=== PATIENT | female | born 1980 | race Caucasian/White ===

== ENCOUNTER → 2017-07-14 | Outpatient (CLI) | payer OTHER ==
--- NOTE | 2017-07-14 17:13 | Diagnostic Imaging Report ---
PROCEDURE:US RETROPERITONEAL ( KIDNEY ). COMPARISON:None. INDICATIONS:CONGENITAL LYMPHANGIOMA TECHNIQUE: Negro-scale and color sonographic images of the bilateral kidneys and bladder where obtained in transverse and longitudinal planes. FINDINGS: RIGHT KIDNEY: 10.2 cm, cortex 1.5 cm Cysts: None Solid masses: None Stones: None Hydronephrosis: None Echogenicity: Normal LEFT KIDNEY: 10.1 cm, cortex 2.4 cm Cysts: None Solid masses: None Stones: None Hydronephrosis: None Echogenicity: Normal Bladder: No focal lesions. Bilateral ureteral jets are identified. 5.8 x 4.2 x 7.3 cm ill-defined hypoechoic structure with posterior acoustic enhancement, and scattered internal echoes likely representing a mildly complex fluid collection, located between the spleen and superior pole of the left kidney. Incidental note is made of increased attenuation of the visualized hepatic parenchyma. CONCLUSION: 1. Normal bilateral renal size, and echogenicity. No hydronephrosis, stones, or focal lesions. 2. 7.3 cm ill-defined, mildly complex fluid collection between the spleen, and superior pole of the left kidney, which may represent the known congenital lymphangioma. This is best visualized/evaluated with contrast-enhanced MRI or CT abdomen. 3. Hepatic steatosis. Deandre Davenport M.D. Dictated by: Deandre Davenport M.D. on 07/14/2017 at 17:23 Electronically approved by: Deandre Davenport M.D. on 07/14/2017 at 17:23
== END ==
LOC: US 15:19
PROVIDERS: ATTEND Internal Medicine
DX: I65.29 Occlusion and stenosis of unspecified carotid artery (principal); D18.1 Lymphangioma, any site
CPT/HCPCS: 76770; 93880

== ENCOUNTER 2017-10-05 12:06 | Emergency (ER) | payer OTHER, MEDICARE ==
[~2017-10-05] VITALS: Ht 170.2 cm; Wt 80.3 kg
--- OUTSIDE RECORDS SUMMARY | 2017-10-05 12:08 | XMS REPORT ---
Author Author [facility] Address Unknown Phone Unavailable Care Team Providers Care Lpn Private Duty Name Role Phone WALLACE PITTS Unavailable Unavailable Problems This patient has no known problems. Allergies, Adverse Reactions, Alerts This patient has no known allergies or adverse reactions. Medications This patient has no known medications. Results Test Description Test Time Test Comments Text Results Atomic Results Result Comments US RENAL RETROPERITONEAL COMP [place] [address] Patient Name: SHELL GAYTAN MR #: [id number] : 1980 Age/Sex: 37/F Req #: [id number] Adm Physician: Ordered by: WALLACE PITTS MD Report #: [id number] Location: Room/Bed: Procedure: [id number] US/US RENAL RETROPERITONEAL COMP Exam Date: 07/14/17 Exam Time: 1616 REPORT STATUS: Signed PROCEDURE : US RETROPERITONEAL ( KIDNEY ). COMPARISON: None. INDICATIONS: CONGENITAL LYMPHANGIOMA TECHNIQUE: Negro-scale and color sonographic images of the bilateral kidneys and bladder where obtained in transverse and longitudinal planes. FINDINGS: RIGHT KIDNEY: 10.2 cm, cortex 1.5 cm Cysts: None Solid masses: None Stones: None Hydronephrosis: None Echogenicity: Normal LEFT KIDNEY: 10.1 cm, cortex 2.4 cm Cysts: None Solid masses: None Stones: None Hydronephrosis: None Echogenicity: Normal Bladder: No focal lesions. Bilateral ureteral jets are identified. 5.8 x 4.2 x 7.3 cm ill-defined hypoechoic structure with posterior acoustic enhancement, and scattered internal echoes likely representing a mildly complex fluid collection, located between the spleen and superior pole of the left kidney. Incidental note is made of increased attenuation of the visualized hepatic parenchyma. CONCLUSION: 1. Normal bilateral renal size, and echogenicity. No hydronephrosis, stones, or focal lesions. 2. 7.3 cm ill-defined, mildly complex fluid collection between the spleen, and superior pole of the left kidney, which may represent the known congenital lymphangioma. This is best visualized/evaluated with contrast-enhanced MRI or CT abdomen. 3. Hepatic steatosis. Shannon Davenport M.D. Dictated by: Shannon Davenport M.D. on 07/14/2017 at 17:23 Electronically approved by: Shannon Davenport M.D. on 2017 at 17:23 Dictated By: SHANNON DAVENPORT MD 1723 Transcribed By: ALEXIS on 1723 COPY TO: WALLACE PITTS MD
[2017-10-05] MEDS ORDERED: METHYLPREDNISOLONE SOD SUCC 125 MG/2ML VIAL IV ONE (12:30)
[2017-10-05] MEDS ORDERED: ASPIRIN 81 MG CHEW TAB PO ONE (12:30)
--- NOTE | 2017-10-05 13:35 | Diagnostic Imaging Report ---
PROCEDURE: A single AP view of the chest. COMPARISON: None. INDICATIONS: SHORTNESS OF BREATH FINDINGS: Lines/tubes: None. Lungs: The lungs are well inflated and clear. There is no evidence of pneumonia or pulmonary edema. Pleura: There is no pleural effusion or pneumothorax. Heart and mediastinum: The heart and the mediastinum are unremarkable. Bones: No acute bony abnormality. IMPRESSION: 1. No acute cardiopulmonary disease. Dictated by: Huber Gunderson M.D. on 10/05/2017 at 13:37 Electronically approved by: Huber Gunderson M.D. on 10/05/2017 at 13:37
[2017-10-05 14:08] LABS: PHENCYCLIDINE SCREEN,URINE NEGATIVE (NEGATIVE)
[2017-10-05 14:09] LABS: AMPHETAMINES SCREEN,URINE POSITIVE (NEGATIVE); BENZODIAZEPINES SCREEN,URINE NEGATIVE (NEGATIVE); CLARITY,URINE SL CLOUDY (CLEAR); COLOR,URINE YELLOW (YELLOW); KETONES,URINE NEGATIVE (NEGATIVE); LEUKOCYTE ESTERASE ,URINE NEGATIVE (NEGATIVE); NITRITE,URINE NEGATIVE (NEGATIVE); PROTEIN,URINE DIPSTICK TRACE (NEGATIVE)
[2017-10-05 14:10] LABS: BILIRUBIN,URINE NEGATIVE (NEGATIVE); URINE UROBILINOGEN 0.2 mg/dL (0.2 - 1)
[2017-10-05 14:19] LABS: BACTERIA,URINE FEW /HPF; EPITHELIAL CELLS,URINE RARE /LPF; WBC,URINE (MAN) 0-5 /HPF (0-5)
[2017-10-05 14:41] LABS: BASOPHILS % 0.4 % (0.0-1.0); EOSINOPHILS # (AUTO) 0.2 (0.0-0.4); HEMATOCRIT 35.1 % (34.2-44.1); HEMOGLOBIN 11.8 g/dL (12.0-16.0); LYMPHOCYTES # (AUTO) 1.5 (1.0-3.2); LYMPHOCYTES % 29.5 % (18.0-39.1); MEAN CORPUSCULAR HEMOGLOBIN 31.3 pg (28-32); MEAN CORPUSCULAR HGB CONC 33.6 g/dL (31-35); MEAN CORPUSCULAR VOLUME 93.1 fL (81-99); MONOCYTES # (AUTO) 0.4 (0.2-0.8); MONOCYTES % 7.5 % (4.4-11.3); NEUTROPHILS % 59.2 % (38.7-80.0); PLATELET COUNT 215 x10e3/uL (140-360); RED BLOOD COUNT 3.77 x10e6/uL (3.6-5.1)
[2017-10-05 15:03] LABS: ALANINE AMINOTRANSFERASE 19 IU/L (0-55); ALBUMIN 3.3 g/dL (3.5-5.0); ALBUMIN/GLOBULIN RATIO 1.1 (0.8-2.0); ALKALINE PHOSPHATASE 114 IU/L (40-150); ANION GAP 11.6 mmol/L (8-16); BLOOD UREA NITROGEN 17 mg/dL (7-26); BUN/CREATININE RATIO 21 (6-25); CARBON DIOXIDE 29 mmol/L (22-29); CHLORIDE 104 mmol/L (98-107); CREATINE KINASE 144 IU/L (29-168); EST GLOMERULAR FILTRATION RATE > 60 ML/MIN (60-); GLUCOSE 94 mg/dL (74-118); MAGNESIUM 2.1 MG/DL (1.3-2.1); POTASSIUM 3.6 mmol/L (3.5-5.1); SODIUM 141 mmol/L (136-145)
[2017-10-05] MEDS ORDERED: METHYLPREDNISOLONE SOD SUCC 125 MG/2ML VIAL ONE (17:32)
[2017-10-05 18:16] LABS: PROTHROMBIN TIME 12.4 seconds (11.9-14.5)
[2017-10-05 18:17] LABS: PARTIAL THROMBOPLASTIN TIME 26.9 seconds (23.8-35.5)
[2017-10-05 20:17] VITALS: BP 109/75
== END 2017-10-05 20:20 | disposition home or self-care (01) ==
LOC: ER 12:06
DX: R06.09 Other forms of dyspnea (principal); R05 Cough; J20.9 Acute bronchitis, unspecified; M79.89 Other specified soft tissue disorders; Z86.73 Personal history of transient ischemic attack (TIA), and cerebral infarction without residual deficits
CPT/HCPCS: 36415; 71045; 80053; 80307; 81001; 82550; 82553; 83735; 83880; 84484; 85025; 85610; 85730; 93005; 99284; J2930

== ENCOUNTER → 2019-08-08 | Outpatient (CLI) | payer MEDICARE, OTHER ==
--- NOTE | 2019-08-08 13:14 | Diagnostic Imaging Report ---
EXAMINATION: CHEST 2 VIEWS INDICATION: Asthma COMPARISON: None FINDINGS: LINES/TUBES:None LUNGS:The lungs are mildly hyperinflated. No focal consolidation or pulmonary edema. Mild biapical pleural parenchymal thickening/scarring. PLEURA:No pleural effusion or pneumothorax. MEDIASTINUM:The cardiomediastinal silhouette appears normal in size and shape. BONES/SOFT TISSUES:No acute osseous injury. ABDOMEN:No free air under the diaphragm. IMPRESSION: Mildly hyperinflated lungs. No focal pneumonia or pulmonary edema. Signed by: Anuja Daugherty MD on 08/08/2019 1:11 PM
--- NOTE | 2019-08-08 13:14 | Diagnostic Imaging Report ---
EXAMINATION: COCCYX INDICATION: Pain COMPARISON: None FINDINGS: No acute fracture or dislocation. Alignment appears anatomic. Visualized soft tissues appear unremarkable. IMPRESSION: No acute osseous injury. Signed by: Anuja Daugherty MD on 08/08/2019 1:12 PM
== END ==
LOC: RAD 12:18
PROVIDERS: ATTEND Internal Medicine
DX: J45.909 Unspecified asthma, uncomplicated (principal); M53.3 Sacrococcygeal disorders, not elsewhere classified; R52 Pain, unspecified
CPT/HCPCS: 71046; 72220